=== PATIENT | female | born 1955 | race Caucasian/White ===

== ENCOUNTER 2017-04-23 09:01 | Outpatient (CLI) | END 2017-04-23 09:02 | disposition home or self-care (01) | LOC: RAD 09:01 | PROVIDERS: ATTEND Internal Medicine | DX: Z12.31 Encounter for screening mammogram for malignant neoplasm of breast (principal) | CPT/HCPCS: 77067 ==

== ENCOUNTER 2018-10-08 13:45 | Outpatient (CLI) ==
--- NOTE | 2018-10-09 10:46 | MAMMO ---
EXAM: Bilateral digital screening mammogram (2-D and 3-D) History: Screening Comparison: Bilateral mammogram 04/23/2017 Findings: MLO and CC views of bilateral breasts demonstrate scattered fibroglandular breast parenchy ma. Was reviewed by the radiologist. Tomosynthesis was performed. There are no dominant masses, no suspicious microcalcifications and no architectural distortions Impression: Stable negative mammogram. Recommend followup routine screening mammography in 1 year. BIRADS 1, negative
== END 2018-10-08 13:46 | disposition home or self-care (01) ==
LOC: RAD 13:45
PROVIDERS: ATTEND Internal Medicine
DX: Z12.31 Encounter for screening mammogram for malignant neoplasm of breast (principal)

== ENCOUNTER 2019-03-23 08:33 | Day surgery (SDC) | payer OTHER ==
[2019-03-23] MEDS ORDERED: LIDOCAINE 1% 20 ML MDV ID STA (09:03)
[2019-03-23 09:09] VITALS: TEMP 97.3
[2019-03-23] MEDS ORDERED: DIPRIVAN 20 ML VIAL IVP ONE (10:50)
[2019-03-23] MEDS ORDERED: VERSED ONE (10:50)
[2019-03-23 11:36] VITALS: BP 101/64
--- NOTE | 2019-03-24 10:43 | OP ---
INDICATIONS FOR PROCEDURE: 64-year-old female presents for colonoscopy. She is scheduled for a screening colon exam. She states that she had a screening colonoscopy about 10 years ago in [place]. MEDICATIONS: SEE ANESTHESIA NOTES. PROCEDURE: COLONOSCOPY, SNARE POLYPECTOMY. REPORT: The risks, benefits, alternatives and limitations were discussed in detail with the patient. Informed consent was obtained. After adequate sedation was achieved, a digital rectal exam revealed good tone, no masses. The colonoscope was introduced into the rectum and advanced under direct visual guidance to the cecum. The cecum was identified by the appendiceal orifice and IC valve. I then slowly withdrew the scope in a circumferential manner examining the mucosa quite carefully. I looked on the proximal and distal side of folds and flexures as best as possible. I was able to retroflex the scope in the right colon and left colon to increase visualization. In the hepatic flexure area there james a small diminutive 3 or 4 mm polyp. I removed this by snare technique. It was destroyed. No other abnormalities noted throughout the colon including on retroflex view of the anal canal. The prep was good. The withdrawal time was 11 minutes and 44 seconds. The patient tolerated the procedure well with stable vital signs and pulse oximetry throughout. IMPRESSION: 1. Small diminutive polyp destroyed. RECOMMENDATIONS: 1. High fiber diet. 2. Office visit as needed. 3. Consider colon surveillance examination again in 5 years, sooner if there are any signs or symptoms to indicate otherwise. CC: DR. TABITHA DAVILA
== END 2019-03-23 12:05 | disposition home or self-care (01) ==
LOC: SURG 08:33
PROVIDERS: ATTEND Internal Medicine Gastroenterology
DX: Z12.11 Encounter for screening for malignant neoplasm of colon (principal); K63.5 Polyp of colon